=== PATIENT | female | born 1965 | race Caucasian/White ===

== ENCOUNTER 2019-03-31 18:09 | Emergency (ER) | payer BC ==
--- OUTSIDE RECORDS SUMMARY | 2019-03-31 18:28 | XMS REPORT | Continuity of Care Document ---
:1965 External Reference #:[id number] Author Name Carmenza Luis MD, PHD Address [address] [place] [address], [address] [place] [id number] Care Team Providers Name Role Phone Carmenza Luis MD, PHD - Family Care Team Information [employer] Medicine Problems Active Problems Provider Date Carcinoma in situ of breast Luz Elena Whelan M.D. Onset: 02/02/2011 Hyperlipidemia Luz Elena Whelan M.D. Onset: 02/02/2011 Low back pain Amanda Ellison MD Onset: 08/26/2017 Personal history of primary malignant Amanda Ellison MD Onset: 09/04/2017 neoplasm of breast Lumbar spondylosis Amanda Ellison MD Onset: 09/11/2017 Tobacco user Carmenza Luis MD, PHD Onset: 01/21/2019 Menopausal flushing Carmenza Luis MD, PHD Onset: 01/21/2019 Gastroesophageal reflux disease Carmenza Luis MD, PHD Onset: 01/21/2019 Psoriasis Carmenza Luis MD, PHD Onset: 01/21/2019 Social History Type Date Description Comments Sex Unknown ETOH Use Rarely consumes alcohol Tobacco Use Start: Unknown Patient is a current smoker, smokes every day Recreational Drug Use Denies Drug Use Smoking Status Reviewed: 02/25/19 Patient is a current smoker, smokes every day Allergies, Adverse Reactions, Alerts Description No Known Drug Allergies Medications Active Medications SIG Qnty Indications Ordering Date Provider Wellbutrin SR 1 tab by mouth 60tabs F17.200 Carmenza Luis, 01/21/2019 150mg twice a day , PHD Tablets ER 12HR breakfast and lunch Famotidine 1 tab by mouth 60tabs K21.9 Carmenza Luis, 01/21/2019 40mg Tablets twice a day before MD PHD meals Gabapentin 1-2 tab by mouth 60caps M47.896 Carmenza Luis, 01/21/2019 300mg at bedtime PHD ОЛЬГА Capsules Clobetasol Propionate use prn to Digiovanna, Emollient affected area Heather J, [employer] 0.05% Cream Escitalopram Oxalate 1 tab daily by 90tabs Carmenza Luis, mouth MD PHD 10mg Tablets Simvastatin 1 tablet by mouth 90tabs E78.5 Carmenza Luis, 10mg daily MD PHD Tablets Tylenol Extra 2 tabs by mouth Unknown Strength every 4 hours as 500mg Tablets needed Vitamin D 1 by mouth daily. Unknown 2000Unit Tablets Immunizations CPT Code Status Date Vaccine Lot # [id number] Given 02/19/2019 Influenza Virus Vaccine, Quadrivalent, 36 Mos+, .5ML Vital Signs Date Vital Result Comment 02/25/2019 11:33am BP Systolic 102 mmHg BP Diastolic 60 mmHg Body Temperature 97.5 F Heart Rate 65 /min Respiratory Rate 16 /min Height 69 inches 5'9" Weight 177.00 lb BMI (Body Mass Index) 26.1 kg/m2 BSA (Body Surface Area) 1.96 m2 [place] body weight in kilograms 66 kg O2 % BldC Oximetry 98 % 01/21/2019 1:18pm BP Systolic 121 mmHg BP Diastolic 76 mmHg Body Temperature 97.7 F Heart Rate 87 /min Respiratory Rate 16 /min Height 69 inches 5'9" Weight 173.00 lb BMI (Body Mass Index) 25.5 kg/m2 BSA (Body Surface Area) 1.94 m2 [place] body weight in kilograms 66 kg O2 % BldC Oximetry 97 % Results Description No Information Available Procedures Date Code Description Status 05/13/2018 75836044 Mammogram Completed 05/13/2016 [id number] Bone Mineral Density Test Completed Medical Devices Description No Information Available Encounters Type Date Location Provider Dx Diagnosis Office Visit 01/21/2019 Family Medicine Carmenza Luis, K21.9 Gastro- esophageal 1:15p Blu Raza MD, PHD reflux disease without esophagitis M47.896 Other spondylosis, lumbar region E78.5 Hyperlipidemia, unspecified F17.200 Nicotine dependence, unspecified, uncomplicated L40.0 Psoriasis vulgaris N95.1 Menopausal and female climacteric states Z85.3 Personal history of malignant neoplasm of breast H61.21 Impacted cerumen, right ear Assessments Date Code Description Provider 02/25/2019 K21.9 Gastroesophageal reflux disease Carmenza Luis MD, PHD 02/25/2019 F17.200 Tobacco user Carmenza Luis MD, PHD 02/25/2019 N95.1 Menopausal flushing Carmenza Luis MD, PHD 01/21/2019 K21.9 Gastroesophageal reflux disease Carmenza Luis MD, PHD 01/21/2019 M47.896 Other spondylosis, lumbar region Carmenza Luis MD, PHD 01/21/2019 E78.5 Hyperlipidemia Carmenza Luis MD, PHD 01/21/2019 F17.200 Tobacco user Carmenza Luis MD, PHD 01/21/2019 L40.0 Psoriasis Carmenza Luis MD, PHD 01/21/2019 N95.1 Menopausal flushing Carmenza Luis MD, PHD 01/21/2019 Z85.3 Personal history of malignant neoplasm of Carmenza Luis MD, PHD breast 01/21/2019 H61.21 Impacted cerumen, right ear Carmenza Luis MD, PHD Plan of Treatment Future Appointment(s):08/26/2019 9:00 am - Carm[facility] MD, PHD at [facility]02/25/2019 - Carmenza Luis MD, PHDK21.9 Gastroesophageal reflux diseaseFollow up:Please request again from [facility] office for copies of lab work drawn in January 2019 Follow up in 6 months for Smoking Cessation and Medication [id number] Tobacco userComments:Discussed quit date before holidays to better enjoy holidays. Encouraged Halloween.Discussed timing of trial of wellbutrin because hasn't tried it yet.N95.1 Menopausal flushingComments:Continue with the gabapentin twice a day for the hot flashes Functional Status Functional Condition Comment Date Status Independent with all ADL's Active Mental Status Description No Information Available Referrals Description No Information Available
--- OUTSIDE RECORDS SUMMARY | 2019-03-31 18:28 | XMS REPORT | Continuity of Care Document ---
:1965 External Reference #:[id number] Author Name Carmenza Luis MD, PHD Address [address] [place] [address], [address] [place] [id number] Care Team Providers Name Role Phone Carmenza Luis MD, PHD - Family Care Team Information [employer] [phone] Medicine Problems Active Problems Provider Date Carcinoma [...] to Digiovanna, Emollient affected area Heather J, B[employer] 0.05% Cream Escitalopram Oxalate 1 tab daily by 90tabs Carmenza Luis, mouth MD PHD 10mg Tablets Simvastatin 1 tablet by mouth 90tabs E78.5 Carmenza Luis, 10mg daily MD PHD Tablets Tylenol Extra 2 tabs by mouth Unknown Strength every 4 hours as 500mg Tablets needed Vitamin D 1 by mouth daily. Unknown 2000Unit Tablets Immunizations CPT Code Status Date Vaccine Lot # [id number] Given 02/19/2019 Influenza Virus Vaccine, Quadrivalent, 36 Mos+, .5ML Vital Signs Date Vital Result Comment 02/25/2019 11:33am BP Systolic 102 mmHg BP Diastolic 60 mmHg Body Temperature 97.5 F Heart Rate 65 /min Respiratory Rate 16 /min Height 69 inches 5'9" Weight 177.00 lb BMI (Body Mass Index) 26.1 kg/m2 BSA (Body Surface Area) 1.96 m2 [place] body weight in kilograms 66 kg O2 % BldC Oximetry 98 % 01/21/2019 1:18pm BP Systolic 121 mmHg BP Diastolic 76 mmHg Body Temperature 97.7 F Heart Rate 87 /min Respiratory Rate 16 /min Height 69 inches 5'9" Weight 173.00 lb BMI (Body Mass Index) 25.5 kg/m2 BSA (Body Surface Area) 1.94 m2 [place] body weight in kilograms 66 kg O2 % BldC Oximetry 97 % Results Description No Information Available Procedures Date Code Description Status 05/13/2018 [id number] Mammogram Completed 05/13/2016 [id number] Bone Mineral Density Test Completed Medical Devices [...] am - Carm[facility] MD, PHD at [facility]02/25/2019 - Carmenza Luis MD, PHDK21.9 Gastroesophageal reflux diseaseFollow up:Please request again from [facility] office for copies of lab work drawn in January 2019 Follow up in 6 months for Smoking Cessation and Medication [id number] Tobacco userComments:Discussed quit date before holidays to [...]
[2019-03-31 18:34] VITALS: BP 139/54
--- NOTE | 2019-03-31 18:54 | UC ---
Lower Extremity/Ankle HPI - HPI Summary HPI Summary: Pt presents with c/o sudden onset of pain and "popping" sound to right posterior thigh last week while attempting to remove boot with left foot. Pt states the pain radiates from upper right thigh to mid right thigh. Pt reports that she has full ROM and denies any inability to ambulate. Pt reports pain improve with neurontin, and tylenol and ibuprofen. - History of Current Complaint Chief Complaint: UCGeneralIllness Stated Complaint: RIGHT LEG PAIN/INJURY Time Seen by Provider: 03/31/19 18:35 Hx Obtained From: Patient ?: No Onset/Duration: Sudden Onset, Lasting Days, Still Present Severity Initially: Mild Severity Currently: Mild Pain Intensity: 4 Aggravating Factor(s): Standing, Ambulation Alleviating Factor(s): Rest Able to Bear Weight: Yes - Risk Factors Gout Risk Factors: Age Over 40 DVT Risk Factors: Negative Septic Arthritis Risk Factor: Negative - Allergies/Home Medications Allergies/Adverse Reactions: Allergies Allergy/AdvReac Type Severity Reaction Status Date / Time No Known Allergies Allergy Verified 03/31/19 18:28 Home Medications: Home Medications Escitalopram Oxalate [Lexapro 10 mg] 1 tab DAILY 03/31/19 [History Confirmed ] Gabapentin CAP(*) [Neurontin 300 CAP(*)] 300 mg PO QPM 03/31/19 [History Confirmed 03/31/19] Simvastatin [Zocor 5 MG-] 10 mg PO QPM 03/31/19 [History Confirmed 03/31/19] PMH/Surg Hx/FS Hx/Imm Hx Previously Healthy: Yes - Surgical History Surgical History: Yes Surgery Procedure, Year, and Place: hysterectomy. mastectomy- 2006 - Family History Known Family History: Positive: Cardiac Disease - Social History Occupation: Employed Full-time Lives: With Family Alcohol Use: Occasionally Substance Use Type: None Smoking Status (MU): Heavy Every Day Tobacco Smoker Type: Cigarettes Amount Used/How Often: 1 pack daily Have You Smoked in the Last Year: Yes Review of Systems All Other Systems Reviewed And Are Negative: Yes Constitutional: Positive: Negative Skin: Positive: Negative Eyes: Positive: Negative ENT: Positive: Negative Respiratory: Positive: Negative Cardiovascular: Positive: Negative Gastrointestinal: Positive: Negative Genitourinary: Positive: Negative Motor: Positive: Negative Neurovascular: Positive: Negative Musculoskeletal: Positive: Myalgia Neurological: Positive: Negative Psychological: Positive: Negative Is Patient Immunocompromised?: No Physical Exam Triage Information Reviewed: Yes Appearance: Well-Appearing Vital Signs: Initial Vital Signs Temp 97 F 03/31/19 18:30 Pulse 78 03/31/19 18:30 Resp 15 03/31/19 18:30 BP 139/54 03/31/19 18:30 Pulse Ox 100 03/31/19 18:30 Vital Signs Reviewed: Yes Eye Exam: Normal ENT Exam: Normal Dental Exam: Normal Neck exam: Normal Respiratory: Positive: No respiratory distress Musculoskeletal Exam: Normal Musculoskeletal: Positive: Strength Intact, ROM Intact, No Edema Neurological Exam: Normal Psychological Exam: Normal Skin Exam: Normal Lower Extremity Course/Dx - Differential Dx/Diagnosis Differential Diagnosis/HQI/PQRI: Sciatica, Sprain, Strain Provider Diagnosis: Right hamstring muscle strain Discharge ED - Sign-Out/Discharge Documenting (check all that apply): Patient Departure All imaging exams completed and their final reports reviewed: No Studies - Discharge Plan Condition: Stable Disposition: HOME Patient Education Materials: Hamstring Exercises (GEN), Hamstring Injury (ED) Referrals: Favio Scott MD [Medical Doctor] - Carmenza Luis MD [Primary Care Provider] - If Needed Additional Instructions: Follow up with your PCP as needed. - Billing Disposition and Condition Condition: STABLE Disposition: Home
== END 2019-03-31 18:53 | disposition home or self-care (01) ==
LOC: UCCORT 18:09
DX: S76.911A Strain of unspecified muscles, fascia and tendons at thigh level, right thigh, initial encounter (principal); F17.210 Nicotine dependence, cigarettes, uncomplicated; X58.XXXA Exposure to other specified factors, initial encounter; Y92.9 Unspecified place or not applicable
CPT/HCPCS: 99201; G0463

== ENCOUNTER 2019-07-26 16:43 | Emergency (ER) | payer BC ==
[2019-07-26 17:18] VITALS: BP 126/72
[2019-07-26 17:28] LABS: Influenza A Molecular POSITIVE (Negative)
--- NOTE | 2019-07-26 17:29 | UC ---
FLU HPI - HPI Summary HPI Summary: 53-year-old female presents with 2 day history of general malaise, fatigue, headache, body aches, subjective fever, chills, nasal congestion, sore throat, nonproductive cough, and diarrhea. Last episode of diarrhea was this morning. No recent travel. Did not receive her flu shot this season. Denies ear pain, dysphasia, chest pain, shortness of breath, abdominal pain, nausea, or vomiting. - History of Current Complaint Chief Complaint: UCRespiratory Stated Complaint: COUGH/HEADACHE/DIARRHEA Time Seen by Provider: 07/26/19 17:16 Hx Obtained From: Patient Pain Intensity: 0 - Allergy/Home Medications Allergies/Adverse Reactions: Allergies Allergy/AdvReac Type Severity Reaction Status Date / Time No Known Allergies Allergy Verified 07/26/19 17:11 Home Medications: Home Medications Escitalopram Oxalate [Lexapro 10 mg] 1 tab DAILY 03/31/19 [History Confirmed ] Gabapentin CAP(*) [Neurontin 300 CAP(*)] 300 mg PO QPM 03/31/19 [History Confirmed 07/26/19] Simvastatin [Zocor 5 MG-] 10 mg PO QPM 03/31/19 [History Confirmed 07/26/19] Benzonatate CAP* [Tessalon 100 MG CAP*] 100 mg PO TID PRN #21 cap 07/26/19 [Rx] Famotidine TAB* [Pepcid 20 MG TAB*] 1 tab BID 07/26/19 [History Confirmed ] PMH/Surg Hx/FS Hx/Imm Hx Endocrine History: Dyslipidemia GI/ History: Gastroesophageal Reflux Psychological History: Depression - Surgical History Surgical History: Yes Surgery Procedure, Year, and Place: hysterectomy. mastectomy- 2007 - Family History Known Family History: Positive: Cardiac Disease - Social History Occupation: Employed Full-time Alcohol Use: Occasionally Substance Use Type: None Smoking Status (MU): Heavy Every Day Tobacco Smoker Type: Cigarettes Amount Used/How Often: 1 PPD Have You Smoked in the Last Year: Yes Review of Systems All Other Systems Reviewed And Are Negative: Yes Constitutional: Positive: Fever, Chills, Fatigue Skin: Negative: Rash Eyes: Negative: Drainage, Eye Redness ENT: Positive: Sore Throat, Nasal Discharge, Sinus Congestion. Negative: Ear Ache, Sinus Pain/Tenderness Respiratory: Positive: Cough. Negative: Shortness Of Breath Cardiovascular: Negative: Palpitations, Chest Pain Gastrointestinal: Positive: Diarrhea. Negative: Abdominal Pain, Vomiting, Nausea Genitourinary: Positive: Negative Musculoskeletal: Positive: Myalgia Neurological/Mental Status: Positive: Headache Is Patient Immunocompromised?: No Physical Exam - Summary Physical Exam Summary: GENERAL APPEARANCE: Alert and cooperative adult female who appears to be in no acute distress. EYES: Conjunctiva clear. No drainage. EARS: External auditory canals and tympanic membranes clear, hearing grossly intact. NOSE: Moderate nasal congestion. No nasal discharge. THROAT: Pharyngeal erythema. No tonsilar inflammation, swelling, exudate, or lesions. Uvula midline. NECK: Neck supple, non-tender without lymphadenopathy. CARDIAC: Normal S1 and S2. No S3, S4 or murmurs. Rhythm is regular. There is no peripheral edema, cyanosis or pallor. Extremities are warm and well perfused. Capillary refill is less than 2 seconds. Peripheral pulses intact. LUNGS: Clear to auscultation without rales, rhonchi, wheezing or diminished breath sounds. Nonproductive cough. ABDOMEN: Positive bowel sounds. Soft, nondistended, nontender. No guarding or rebound. No masses or hepatosplenomegally. MUSKULOSKELETAL: ROM intact to all extremities. No joint erythema or tenderness. Normal muscular development. Normal gait. SKIN: Skin normal color, texture and turgor with no lesions or eruptions. Triage Information Reviewed: Yes Vital Signs: Initial Vital Signs Temp 98.9 F 07/26/19 17:12 Pulse 112 07/26/19 17:12 Resp 20 07/26/19 17:12 BP 126/72 07/26/19 17:12 Pulse Ox 96 07/26/19 17:12 Vital Signs Reviewed: Yes Flu Course/Dx - Course Course Of Treatment: 53-year-old female presents with 2 day history of general malaise, fatigue, headache, body aches, subjective fever, chills, nasal congestion, sore throat, nonproductive cough, and diarrhea. Last episode of diarrhea was this morning. No recent travel. Did not receive her flu shot this season. Denies ear pain, dysphasia, chest pain, shortness of breath, abdominal pain, nausea, or vomiting. Afebrile. Mildly tachycardic otherwise vital signs stable. Patient had moderate nasal congestion, normal TMs, pharyngeal erythema without tonsillar swelling or exudate, no cervical lymphadenopathy, clear bilateral breath sounds, and nonproductive cough, and otherwise unremarkable exam. Rapid flu test was positive for influenza A. We discussed the risks and benefits of treating with Tamiflu and she is electing not to start at this time. Recommending symptomatic treatment including Tessalon Perles 1 capsule every 8 hours as needed for cough. She is to follow-up with her primary care provider in 5-7 days if symptoms are not improving. Respiratory guidance and warning symptoms were reviewed with the patient. Verbalizes understanding and agrees with plan of care. - Differential Dx/Diagnosis Differential Diagnosis/HQI/PQRI: Bronchitis, Influenza, Pneumonia, Upper Respiratory Infection Provider Diagnosis: Influenza A Discharge ED - Sign-Out/Discharge Documenting (check all that apply): Patient Departure All imaging exams completed and their final reports reviewed: No Studies - Discharge Plan Condition: Stable Disposition: HOME Prescriptions: Benzonatate CAP* [Tessalon 100 MG CAP*] 100 mg PO TID PRN #21 cap PRN Reason: Cough Patient Education Materials: Influenza (ED) Forms: *Work Release Referrals: Carmenza Luis MD [Primary Care Provider] - 5 Days Additional Instructions: Your flu test in the clinic today was positive for influenza A. Start Tamiflu 1 capsule twice a day for 5 days. Get plenty of rest. Drink plenty of fluids to avoid dehydration especially if you are running any fever. Take over the counter acetaminophen (Tylenol) or ibuprofen (Advil, Motrin) according to directions as needed for pain or fever. Take Tessalon Perles 1 cap every 8 hours as needed for cough. Use salt water gargles several times a day if you have a sore throat. You may also use Chloraseptic spray or Cepacol lonzenges according to directions which contain a numbing medication and can provide some temporary relief from your sore throat. Follow up with your primary care provider in 7 days if symptoms persist. Seek immediate medical attention in the emergency room if you have fever greater than 100.5 F despite taking acetaminophen or ibuprofen, have chest pain , difficulty breathing, are unable to swallow, or have any worsening of symptoms. - Billing Disposition and Condition Condition: STABLE Disposition: Home
[2019-07-26] MEDS ORDERED: Benzonatate CAP* 100 MG PO ONE (17:43)
== END 2019-07-26 18:07 | disposition home or self-care (01) ==
LOC: UCCORT 16:43
DX: J10.1 Influenza due to other identified influenza virus with other respiratory manifestations (principal); R19.7 Diarrhea, unspecified; E78.5 Hyperlipidemia, unspecified; K21.9 Gastro-esophageal reflux disease without esophagitis; F32.9 Major depressive disorder, single episode, unspecified; Z79.899 Other long term (current) drug therapy; F17.210 Nicotine dependence, cigarettes, uncomplicated; R51 Headache
CPT/HCPCS: 99212; A9270-GY; G0463